=== PATIENT | female | born 1955 | race African-American/Black ===

== ENCOUNTER 2018-01-21 12:11 | Emergency (ER) | payer OTHER, BC ==
--- NOTE | 2018-01-21 12:37 | ER Document Report ---
ED Medical Screen (RME) - General Chief Complaint: Hand Swelling Stated Complaint: WC/HAND INJURY Time Seen by Provider: 01/21/18 12:35 Mode of Arrival: Ambulatory Information source: Patient TRAVEL OUTSIDE OF THE [place] IN LAST 30 DAYS: No - HPI Patient complains to provider of: Right thumb pain Notes: 01/21/18 12:36 Right thumb and hand pain since yesterday. No specific injury. The patient is a diabetic. No numbness, tingling, weakness. No fever. Physical exam: Redness and swelling with tenderness at the base of the right thumb with redness streaking up the right wrist. Slightly increased warmth to touch. Nontoxic appearing otherwise. Plan: X-ray, CBC, CMP, uric acid, sed rate, CRP. An initial examination was made on the patient as part of the triage process, and it was determined a more comprehensive evaluation was necessary. Initial labs were ordered and patient was transferred to another provider in the ED who assumed care and finished evaluation and plan. - Related Data Allergies/Adverse Reactions: aspirin [Aspirin] Allergy (Verified 01/21/18 12:14) codeine [Codeine] Allergy (Verified 01/21/18 12:14) Penicillins Allergy (Verified 01/21/18 12:14) Physical Exam - Vital signs Vitals: Temp Pulse Resp BP Pulse Ox 98.5 F 62 20 172/69 H 93 01/21/18 12:17 01/21/18 12:17 01/21/18 12:17 01/21/18 12:17 01/21/18 12:17 Course - Vital Signs Vital signs: Temp Pulse Resp BP Pulse Ox 98.5 F 62 20 172/69 H 93 01/21/18 12:17 01/21/18 12:17 01/21/18 12:17 01/21/18 12:17 01/21/18 12:17
[2018-01-21 13:04] LABS: ABSOLUTE EOSINOPHILS # (AUTO) 0.2 10^3/uL (0.0-0.6); ABSOLUTE LYMPHOCYTES (AUTO) 1.6 10^3/uL (0.5-4.7); ABSOLUTE MONOCYTES (AUTO) 0.5 10^3/uL (0.1-1.4); ABSOLUTE NEUT (AUTO) 4.6 10^3/uL (1.7-8.2); BASOPHILS % (AUTO) 0.5 % (0-2); EOSINOPHILS % (AUTO) 3.3 % (0-6); HEMATOCRIT 35.3 % (36.0-47.0); HEMOGLOBIN 11.3 g/dL (12.0-15.5); LYMPHOCYTES % (AUTO) 22.9 % (13-45); MEAN CORPUSCULAR HEMOGLOBIN 23.5 pg (27.0-33.4); MEAN CORPUSCULAR HGB CONC 31.9 g/dL (32.0-36.0); MEAN CORPUSCULAR VOLUME 74 fl (80-97); MONOCYTES % (AUTO) 7.2 % (3-13); PLATELET COUNT 201 10^3/uL (150-450); RED BLOOD COUNT 4.79 10^6/uL (3.72-5.28); SEGMENTED NEUTROPHILS % (AUTO) 66.1 % (42-78); TOTAL CELLS COUNTED % (AUTO) 100 %
[2018-01-21 13:26] LABS: ALANINE AMINOTRANSFERASE 43 U/L (9-52); ALBUMIN 3.9 g/dL (3.5-5.0); ALKALINE PHOSPHATASE 81 U/L (38-126); ANION GAP 10 (5-19); ASPARTATE AMINO TRANSFERASE 28 U/L (14-36); BILIRUBIN,DIRECT 0.2 mg/dL (0.0-0.4); BILIRUBIN,TOTAL 0.4 mg/dL (0.2-1.3); BLOOD UREA NITROGEN 19 mg/dL (7-20); CARBON DIOXIDE 30 mmol/L (22-30); CHLORIDE 106 mmol/L (98-107); GLUCOSE 109 mg/dL (75-110); POTASSIUM 4.1 mmol/L (3.6-5.0); SODIUM 146.3 mmol/L (137-145); TOTAL PROTEIN 6.8 g/dL (6.3-8.2); URIC ACID 7.2 mg/dL (2.5-7.5)
--- NOTE | 2018-01-21 13:28 | RADIOLOGY REPORT (SQ) ---
EXAM DESCRIPTION: HAND RIGHT 3 VIEWS COMPLETED DATE/TIME: 01/21/2018 1:14 pm REASON FOR STUDY: pain, swelling COMPARISON: None. EXAM PARAMETERS: NUMBER OF VIEWS: Three views. TECHNIQUE: AP, lateral and oblique radiographic images acquired of the right hand. LIMITATIONS: None. FINDINGS: There is widening of the articulation between the base of the 1st metacarpal and the trape zium. There is associated periosteal reaction and osteophyte formation. No foreign body. 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 This is either erosive arthropathy or sequ breanna of chronic dislocation. TECHNICAL DOCUMENTATION: JOB ID: [id number] [employer]- All Rights Reserved Reading location - IP/workstation name: [email or web address]
[2018-01-21] MEDS ORDERED: HYDROMORPHONE HCL INJ/PF 2 MG/ML AMPULE IV ONE (13:33)
[2018-01-21 13:42] LABS: ERYTHROCYTE SEDIMENTATION RATE 29 mm/hr (0-30)
[2018-01-21] MEDS ORDERED: CEFTRIAXONE INJ 1000 MG VIAL IV ONE (14:54)
--- NOTE | 2018-01-21 15:30 | RADIOLOGY REPORT (SQ) ---
EXAM DESCRIPTION: U/S EXTREMITY NONVASCULAR LTD COMPLETED DATE/TIME: 01/21/2018 3:15 pm REASON FOR STUDY: Right hand, eval for abscess or fluid collection COMPARISON: None. TECHNIQUE: Dynamic and static grayscale images acquired of the localized site of clinical concern an d recorded on PACS. Additional selected color Doppler and spectral images recorded. SITE OF CONCERN: Right hand. LIMITATIONS: Unable to completely open hand. FINDINGS: Diffuse subcutaneous edema. Small 1.1 x 0.4 x 0.9 cm hypoechoic focus with no internal fl ow on color Doppler. IMPRESSION: Cellulitis. Small abscess. TECHNICAL DOCUMENTATION: JOB ID: [id number] [employer]- All Rights Reserved Reading location - IP/workstation name: [email or web address]
--- NOTE | 2018-01-21 16:21 | ER Document Report ---
ED General - General Chief Complaint: Hand Swelling Stated Complaint: WC/HAND INJURY Time Seen by Provider: 01/21/18 12:35 Mode of Arrival: Ambulatory TRAVEL OUTSIDE OF THE [place] 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 Of note, this is a left- hand dominant female. She states yesterday around 330 or 3:45 PM, she was trying to wrestle a garbage can through a door when she thinks she may have injured her hand or scraped it. No michelle laceration. However, sometime overnight she developed pain and swelling in her right thenar eminence. Pain with motion of her thumb. Throbbing, worse with motion. Nonradiating except as described. Gradual onset. No other modifying factors, no other associated symptoms, no other provocative or palliative factors. - Related Data Allergies/Adverse Reactions: aspirin [Aspirin] Allergy (Verified 01/21/18 12:14) codeine [Codeine] Allergy (Verified 01/21/18 12:14) Penicillins Allergy (Verified 01/21/18 12:14) Past Medical History - General Information source: Patient - Social History Smoking Status: Former Smoker Chew tobacco use (# tins/day): No Frequency of alcohol use: None Drug Abuse: None Family History: CAD Patient has suicidal ideation: No Patient has homicidal ideation: No - Past Medical History Cardiac Medical History: Reports: Hx Hypercholesterolemia, Hx Hypertension Endocrine Medical History: Reports: Hx Diabetes Mellitus Type 1 Renal/ Medical History: Denies: Hx Peritoneal Dialysis Past Surgical History: Reports: Hx Cholecystectomy, Hx Open Heart Surgery - 2013 , Hx Tubal Ligation Review of Systems - Review of Systems Notes: Review of systems as in the history of present illness, otherwise negative. Physical Exam - Vital signs Vitals: Temp Pulse Resp BP Pulse Ox 98.5 F 62 20 172/69 H 93 01/21/18 12:17 01/21/18 12:17 01/21/18 12:17 01/21/18 12:17 01/21/18 12:17 - Notes Notes: General: Well developed . HEENT: Normocephalic, atraumatic. Pupils equal round reactive to light. No JVD. Chest: No trauma. Respiratory: Good air exchange, normal excursion. Cardiac: Regular rhythm. No murmurs or gallops. Abdomen: Soft, benign. Nondistended. Nontender. Back: No asymmetry or gross abnormality. Motor: Grossly normal power and tone. Neurologic: Alert, nonfocal. Cranial nerves II-12 are intact. Sensation intact. Vascular: Well perfused. Normal peripheral pulses. Skin: No petechiae or purpura. Remedies: Right thenar eminence is edematous, slight erythema and a one by one set of area patch. There is no fluctuance, no significant induration. She is able to flex and extend her thumb passively without significant pain, there is no tenderness about the tendon sheath. Course - Re-evaluation Re-evalutation: 01/21/18 16:25 Part of my evaluation, patient underwent evaluation by another provider labs ordered. These labs reviewed, CBC unremarkable, CRP elevated. Plain films are obtained, there is no evidence of foreign body. There is evidence what appears to be chronic degenerative changes about the first M CP Although gout would be in the differential, this appears more consistent with infection. Obtain ultrasound of the hand evaluate for loculated or deep space infection. A small 1 x 0.9 x 1 area of possible fluid collection. Aspiration was attempted unsuccessfully. Patient has been given IV Unasyn, placed on IV Augmentin and analgesics. She is going to be brought back in 12 hours for a recheck, return if worsening. - Vital Signs Vital signs: Temp Pulse Resp BP Pulse Ox 98.5 F 62 20 172/69 H 93 01/21/18 12:17 01/21/18 12:17 01/21/18 12:17 01/21/18 12:17 01/21/18 12:17 - Laboratory Result Diagrams: 01/21/18 12:52 01/21/18 12:59 Laboratory results interpreted by me: 01/21/18 01/21/18 12:52 12:59 Hgb 11.3 L Hct 35.3 L MCV 74 L MCH 23.5 L MCHC 31.9 L RDW 15.0 H Sodium 146.3 H C-Reactive Protein 15.0 H Discharge - Discharge Clinical Impression: Cellulitis Qualifiers: Site of cellulitis: extremity Site of cellulitis of extremity: upper extremity Laterality: right Qualified Code(s): L03.113 - Cellulitis of right upper limb Disposition: HOME, SELF-CARE Instructions: Cellulitis ([facility]) Prescriptions: Amox Tr/Potassium Clavulanate [Augmentin 875-125 Tablet] 1 tab PO BID 7 Days tablet Hydrocodone Bit/Acetaminophen [Hydrocodon-Acetaminophen 5-325] 1 each PO Q6 #12 tablet Forms: Return to Work Referrals: ROLDAN DAWSON MD [Primary Care Provider] - Follow up as needed (Return to the ER at 6AM for a re-check)
[2018-01-21 16:30] VITALS: BP 141/73
== END 2018-01-21 16:50 | disposition home or self-care (01) ==
LOC: ER 12:11
DX: L03.113 Cellulitis of right upper limb (principal); M79.671 Pain in right foot; M79.89 Other specified soft tissue disorders; X50.0XXA Overexertion from strenuous movement or load, initial encounter; Y93.89 Activity, other specified; Y99.0 Civilian activity done for income or pay; Z87.891 Personal history of nicotine dependence; I10 Essential (primary) hypertension; E10.9 Type 1 diabetes mellitus without complications
CPT/HCPCS: 99284; 96375; 96365; 36415; 84550; 85025; 85652; 86140; 80053; 73130; 76882; J1170; J0696

== ENCOUNTER 2018-01-22 09:13 | Emergency (ER) | payer OTHER, BC ==
[2018-01-22 09:30] VITALS: BP 128/61
[2018-01-22] MEDS ORDERED: SULFAMETHOXAZOLE/TRIMETHOPRIM 800-160 MG TABLET PO ONE (09:40)
[2018-01-22] MEDS ORDERED: CEPHALEXIN 500 MG CAPSULE PO ONE (09:40)
--- NOTE | 2018-01-22 09:43 | ER Document Report ---
ED General - General Chief Complaint: Wound Recheck Stated Complaint: HAND RECHECK Time Seen by Provider: 01/22/18 09:33 TRAVEL OUTSIDE OF THE [place] IN LAST 30 DAYS: No - HPI Notes: 62-year-old female presents for recheck of hand infection. This is left handed female patient who I saw yesterday evening. She had sustained some equivocal injury to her right thenar eminence while at work and developed progressive swelling and redness. At that time workup showed what appeared to be right thenar eminence and hand cellulitis with some small amount of fluid collection. Patient was given IV ceftriaxone in the ED and inadvertently started on Augmentin. She took a single dose has tolerated it well. On reevaluation today she states she feels better and the swelling has gone down she feels much better. No constitutional symptoms. Pain is improving. She has had no sequelae from Augmentin use. - Related Data Allergies/Adverse Reactions: aspirin [Aspirin] Allergy (Verified 01/21/18 12:14) codeine [Codeine] Allergy (Verified 01/21/18 12:14) Penicillins Allergy (Verified 01/21/18 12:14) Past Medical History - Social History Smoking Status: Never Smoker Family History: CAD - Past Medical History Cardiac Medical History: Reports: Hx Hypercholesterolemia, Hx Hypertension Endocrine Medical History: Reports: Hx Diabetes Mellitus Type 1 Renal/ Medical History: Denies: Hx Peritoneal Dialysis Past Surgical History: Reports: Hx Cholecystectomy, Hx Open Heart Surgery - 2013 , Hx Tubal Ligation Review of Systems - Review of Systems Notes: Review of systems as in history of present illness, otherwise no significant headache, chest pain, abdominal pain. Physical Exam - Vital signs Vitals: Temp Pulse Resp BP Pulse Ox 98.5 F 67 20 128/61 H 93 01/22/18 09:28 01/22/18 09:28 01/22/18 09:28 01/22/18 09:28 01/22/18 09:28 - Notes Notes: General: Well devloped, no acute distress. HEENT: Normocephalic, atraumatic. Pupils equal round reactive to light. Mucosa moist. No JVD. Chest: No trauma, normal excursion. Respiratory: Good air exchange, normal excursion. Cardiac: Regular rhythm Abdomen: Soft, benign. Nondistended. Back: No asymmetry or gross abnormality. Motor: Grossly normal power and tone. Neurologic: Alert, nonfocal. Vascular: Well perfused Skin: No petechiae or purpura Extremities: Right thenar eminence shows resolved erythema. There is still edema and tenderness but substantially improved from yesterday. No purulent drainage. Normal sensation. Course - Re-evaluation Re-evalutation: 01/22/18 09:57 Well-appearing 62-year-old female with resolving hand cellulitis. We will continue antibiotics, I am going to switch her over to Keflex and Bactrim given her stated allergy. She will follow-up with her primary care physician, return if worsening. - Vital Signs Vital signs: Temp Pulse Resp BP Pulse Ox 98.5 F 67 20 128/61 H 93 01/22/18 09:28 01/22/18 09:28 01/22/18 09:28 01/22/18 09:28 01/22/18 09:28 Discharge - Discharge Clinical Impression: Cellulitis Qualifiers: Site of cellulitis: extremity Site of cellulitis of extremity: upper extremity Laterality: right Qualified Code(s): L03.113 - Cellulitis of right upper limb Condition: Good Instructions: Cellulitis ([facility]) Prescriptions: Cephalexin Monohydrate [Keflex 500 mg Capsule] 500 mg PO Q6H 7 Days #28 capsule Sulfamethoxazole/Trimethoprim [Bactrim Ds Tablet] 1 each PO Q12 #14 tablet
== END 2018-01-22 09:58 | disposition home or self-care (01) ==
LOC: ER 09:13
DX: S69.91XA Unspecified injury of right wrist, hand and finger(s), initial encounter (principal); L03.113 Cellulitis of right upper limb; X58.XXXA Exposure to other specified factors, initial encounter
CPT/HCPCS: 99281

== ENCOUNTER → 2020-03-29 | Outpatient (CLI) | payer BC, OTHER ==
--- NOTE | 2020-03-29 21:41 | XCELERA REPORT ---
[address] [address] Transthoracic Echocardiogram Report Name: SURESH SHERWOOD Age: 64 yrs Gender: Female : 1955 Patient Status: Outpatient Patient Location: Study Date: 03/29/2020 08:17 AM History: CAD CABG HTN Height: 61 in Weight: 230 lb BSA: 2.0 m2 Procedure: A complete two-dimensional transthoracic echocardiogram was performed (2D, M-mode, spectral and color flow Doppler). The study was technically difficult with many images being suboptimal in quality. Reason For Study: ATHEROSCLEROSIS Previous Evaluation: A previous study was performed on 02/09/2014 LVEF 50% [facility]. History: CAD. HTN. Dyslipidemia. Diabetes. Vascular surgeries/interventions: CABG. Ordering Physician: SOFYA CASEY Performed By: Felicitas Welch Interpretation Summary The Ejection Fraction estimate is 40-45% Left ventricular systolic function is mildly reduced. The right ventricle is normal in size and function. There is a trace amount of mitral regurgitation There is no aortic valve stenosis There is a trace amount of tricuspid regurgitation There is mild pulmonary hypertension by echo There is no pericardial effusion. MMode/2D Measurements & Calculations RVDd: 2.0 cm LVIDd: 6.0 cm FS: 26.1 % Ao root diam: IVSd: 0.87 cm LVIDs: 4.4 cm EDV(Teich): 2.9 cm LVPWd: 0.83 cm 178.9 ml Ao root area: ESV(Teich): 6.5 cm2 88.6 ml EF(Teich): 50.5 % EDV(MOD-sp4): SV(MOD-sp4): 131.0 ml 44.5 ml ESV(MOD-sp4): 86.5 ml EF(MOD-sp4): 34.0 % Doppler Measurements & Calculations MV E max joseluis: MV dec slope: Ao V2 max: AI max joseluis: 57.4 cm/sec 135.1 cm/sec 127.2 cm/sec MV A max joseluis: 223.1 cm/sec2 Ao max PG: AI max P.5 mmHg 107.5 cm/sec MV dec time: 7.3 mmHg 0.26 sec AI dec slope: MV E/A: 0.53 44.4 cm/sec2 AI P1/2t: 839.2 msec LV V1 max PG: PA V2 max: PI end-d joseluis: TR max joseluis: 3.8 mmHg 88.9 cm/sec 83.0 cm/sec 271.4 cm/sec LV V1 max: PA max P.2 mmHg TR max P.6 cm/sec 29.9 mmHg Left Ventricle The left ventricle is mildly dilated. There is normal left ventricular wall thickness. The Ejection Fraction estimate is 40-45%. Left ventricular systolic function is mildly reduced. Doppler measurements suggest impaired left ventricular relaxation, which is associated with grade I/IV or mild diastolic dysfunction. Septal motion is consistent with post-operative state. Right Ventricle The right ventricle is normal in size and function. Atria The right atrium is normal. The left atrium is mildly dilated. The interatrial septum is intact with no evidence for an atrial septal defect. There is no Doppler evidence for an interatrial shunt. Mitral Valve The mitral valve is grossly normal. There is no mitral valve stenosis. There is a trace amount of mitral regurgitation. Aortic Valve The aortic valve is trileaflet. The aortic valve is sclerotic, but shows no functional abnormality. The aortic valve opens well. There is no aortic valve stenosis. No aortic regurgitation is present. Tricuspid Valve The tricuspid valve is normal in structure and function. There is a trace amount of tricuspid regurgitation. There is mild pulmonary hypertension by echo. Best estimated RVSP is approximately 30-35 mm Hg mm/Hg. Pulmonic Valve The pulmonic valve is not well visualized. There is a trace amount of pulmonic regurgitation. Great Vessels The aortic root is normal size. The inferior vena cava appeared normal and decreased > 50% with respiration (RAP 5-10 mmHg). Effusions There is no pericardial effusion. : SOFYA CASEY Anil
== END ==
LOC: SP 08:52
PROVIDERS: ATTEND Internal Medicine
DX: I25.810 Atherosclerosis of coronary artery bypass graft(s) without angina pectoris (principal); I10 Essential (primary) hypertension; E78.5 Hyperlipidemia, unspecified; Z95.1 Presence of aortocoronary bypass graft
CPT/HCPCS: 93306